=== PATIENT | female | born 1945 | race Asian ===

== ENCOUNTER 2023-08-31 08:47 | Day surgery (SDC) | payer MEDICARE, MEDICAID ==
[~2023-08-31] VITALS: Ht 162.6 cm; Wt 76.3 kg
[~2023-08-31 08:47] MED LIST: ACET1TAB55 PO; ATROPINE SULFATE 1% OPHTH SOLN 2ML BTL OS SCH; GABA600T4 PO; LISI5TAB11 PO; LOSA50TA28 PO; MAGN64TASA PO; METF500T13 PO; MIDAZOLAM INJ 2MG/2ML VIAL As Ordered ONE; OFLOXACIN 0.3 % (OCUFLOX) OPTH SOL 5ML OS ONE; OYST250T6; PHENYLEPHRINE 10% OPHTH SOL 5ML OS PRN; PHENYLEPHRINE 2.5% OPHTH SOL 2ML OS SCH; TROPICAMIDE 1% OPHTH SOLN 15ML OS SCH; VENL-37 PO; fentaNYL 100 MCG/2 ML INJECTION As Ordered ONE
[2023-08-31] MEDS ORDERED: ONDANSETRON 4MG 2ML VIAL As Ordered ONE (10:22)
[2023-08-31] MEDS: LIDOCAINE 3.5 % 1ML OPHTH TOPICAL GEL OU ONE (10:37)
[2023-08-31] MEDS ORDERED: propofoL 200 MG/20 ML VIAL As Ordered ONE (11:01)
[2023-08-31] MEDS: LIDOCAINE 2% W/EPINEPHRINE 20ML VIAL **PRES FREE As Ordered ONE (11:15)
[2023-08-31] MEDS: mitoMYcin 0.2 MG/VIAL KIT FOR OPHTHALMIC USE As Ordered ONE (11:15)
[2023-08-31] MEDS: CEFUROXIME 1MG/0.1ML INTRACAMERAL INJ As Ordered ONE (11:15)
[2023-08-31] MEDS: TOBRADEX OPHTH OINT 3.5 GM As Ordered ONE (11:15)
[2023-08-31] MEDS: LIDOCAINE 1% SDV 5ML VIAL As Ordered ONE (11:15)
[2023-08-31 11:23] VITALS: BP 136/65; TEMP 96.9; O2SAT 100
== END 2023-08-31 11:50 | disposition home or self-care (01) ==
LOC: M SDC 08:47
PROVIDERS: ATTEND Ophthalmology
DX: H11.002 Unspecified pterygium of left eye (principal); E11.9 Type 2 diabetes mellitus without complications; Z79.899 Other long term (current) drug therapy
CPT/HCPCS: 65426; 88304; C1762; J2250; J2405; J3010; J7315